=== PATIENT | female | born 1980 ===

== ENCOUNTER 2019-06-24 03:17 | Inpatient (IN) | payer OTHER ==
[~2019-06-24] VITALS: Ht 170.2 cm; Wt 81.6 kg
[2019-06-24] MEDS ORDERED: LACT. RINGERS/OXYTOCIN 20UNITS 1,000 ML IV SCH (03:33)
[2019-06-24] MEDS ORDERED: LACT. RINGERS/OXYTOCIN 20UNITS 1,000 ML IV ONE (03:38)
[2019-06-24] MEDS ORDERED: DERMOPLAST 60ML BOTTLE TOP PRN (03:45)
[2019-06-24] MEDS ORDERED: WITCH HAZEL-GLYCERIN PAD TOP PRN (03:45)
[2019-06-24] MEDS ORDERED: PHISODERM TOP SOLN 240ML BTL TOP PRN (03:45)
[2019-06-24 04:15] LABS: Basophils # (auto) 0 uL; Basophils % (auto) 0.3 % (0.0-2.0); Eosinophils # (auto) 0.2 uL; Eosinophils % (auto) 1.8 % (0.0-7.0); Hematocrit 35.6 % (36.0-46.0); Hemoglobin 11.9 g/dL (12.2-16.2); Lymphocytes # (auto) 0.8 uL; Lymphocytes % (auto) 9.6 % (10.0-50.0); Mean Corpuscular Hemoglobin 27.7 pg (28.0-32.0); Mean Corpuscular Hgb Conc. 33.5 g/dL (32.0-36.0); Mean Corpuscular Volume 82.5 fL (80.0-100.0); Monocytes # (auto) 0.6 uL; Monocytes % (auto) 7.2 % (0.0-12.0); Neutrophils # (auto) 7.1 uL; Neutrophils % (auto) 81.1 % (37.0-80.0); Platelet Count (auto) 201 10^3/uL (140-450); Red Blood Cells 4.31 10^6/uL (4.0-5.20); Red Cell Distribution Width 13.4 % (11.8-14.3); White Blood Cell 8.8 10^3/uL (4.4-10.8)
[2019-06-24 04:30] LABS: INR < 0.93 (0.9-1.15); Partial Thromboplastin Time 26.8 sec (23.64-32.05)
[2019-06-24 04:32] LABS: Albumin 2.7 g/dL (3.4-5.0); BUN/Creatinine Ratio 25.5; Calcium 8.9 mg/dL (8.5-10.1); Potassium 3.7 mmol/L (3.5-5.1)
[2019-06-24 04:37] LABS: Bilirubin, Total 0.2 mg/dL (0.2-1.0); Total Protein 5.9 g/dL (6.4-8.2)
[2019-06-24] MEDS ORDERED: LIDOCAINE 2%HCL (LOCAL ANESTH.) INJ 20ML MDV ID ONE (05:30)
--- NOTE | 2019-06-24 05:30 | NUR ---
Ambulation: Patient OOB with standby assistance by RN. Patient ambulated to bathroom with steady gait. Patient able to void without difficulty. [facility] teaching provided with returned demonstration by patient. Clean gown provided and bed linen changed. Patient ambulated back to bed with steady gait and no distress noted.
[2019-06-24 06:40] LABS: Urine Bacteria NONE SEEN /hpf (None Seen); Urine Blood 3+ /uL (Negative); Urine Specific Gravity 1.015 (1.001-1.035); Urine WBC 43 /hpf (0 - 5)
[2019-06-24 06:44] LABS: Alcohol, Urine < 3.0 mg/dL (0-5); Amphetamine Screen, Urine NEGATIVE (NEGATIVE); Barbiturate Scree,Urine NEGATIVE (NEGATIVE); Benzodiazephine Screen, Urine NEGATIVE (NEGATIVE); Cannabinoid Screen, Urine NEGATIVE (NEGATIVE); Cocaine Screen, Urine NEGATIVE (NEGATIVE); Opiate Scree,Urine NEGATIVE (NEGATIVE); Phencyclidine Screen, Urine NEGATIVE (NEGATIVE)
[2019-06-24 07:00] VITALS: BP 128/83
--- NOTE | 2019-06-24 09:20 | NUR ---
dr. ch came in the room checked on the patient's room and he said there is skid varun and no nee to be repaired.
[2019-06-24 11:15] VITALS: BP 132/69
[2019-06-24 14:50] VITALS: BP 125/80
[2019-06-24 19:11] VITALS: BP 117/69
[2019-06-24 23:30] VITALS: BP 127/87
--- NOTE | 2019-06-25 02:05 | NUR ---
REPORT RECEIVED FROM Faith CEJA RN ON STABLE PATIENT, ASSUMING CARE. NO DISTRESS NOTED.
--- NOTE | 2019-06-25 02:24 | NUR ---
REPORT ON STABLE PT GIVEN TO Pal CALLAHAN. RELINQUISHED CARE.
[2019-06-25 03:00] VITALS: BP 124/75
[2019-06-25] MEDS ORDERED: PREN-96 PO (05:23)
[2019-06-25 06:35] VITALS: BP 117/85
[2019-06-25 07:11] LABS: RPR Non Reactive (Non Reactive)
--- NOTE | 2019-06-25 08:05 | NUR ---
IV removal IV DC'd with sterile technique, catheter fully intact. Pressure dressing applied to site. Patient tolerated procedure well.
[2019-06-25 10:42] VITALS: BP 124/85
--- NOTE | 2019-06-25 12:00 | NUR ---
Discharge: Discharge instructions given as ordered. 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 All questions and concerns addressed. Patient verbalized understanding. Medication reconciliation completed and copy given to patient. Patient encouraged to prepare to depart unit.
--- NOTE | 2019-06-25 13:55 | NUR ---
Discharge: Patient taken to vehicle ambulatory via steady gait, pt declined wheelchair with all personal belongings, accompanied by staff. No distress noted at time of departure, no adverse changes in status since initial assessment.
[2019-06-27 10:09] LABS: Rubella Antibodies, IgG <0.90 index (Immune >0.99)
== END 2019-06-25 13:55 | disposition home or self-care (01) | DRG 776 ==
LOC: LDRP 03:17
PROVIDERS: ADMIT Specialist; ATTEND Specialist
DX: O72.1 Other immediate postpartum hemorrhage (principal)
CPT/HCPCS: 36415; 80053; 80307; 81001; 84112; 85025; 85610; 85730; 86592; 86703; 86762; 86850; 86900; 86901; 87340; G0378; J2590